=== PATIENT | female | born 1940 | race Caucasian/White ===

== ENCOUNTER 2022-11-23 07:56 | Outpatient (CLI) | payer MEDICARE, BC, SELFPAY | END 2022-11-23 07:57 | disposition home or self-care (01) | LOC: NFLDREF 12:20 | PROVIDERS: PCP Internal Medicine; Referring Provider Internal Medicine; Visit Provider Internal Medicine | DX: E78.5 Hyperlipidemia, unspecified (principal); E03.9 Hypothyroidism, unspecified; I25.10 Atherosclerotic heart disease of native coronary artery without angina pectoris; M85.80 Other specified disorders of bone density and structure, unspecified site; I89.0 Lymphedema, not elsewhere classified | CPT/HCPCS: 80048; 80061; 82306; 84443 ==

== ENCOUNTER 2022-11-25 08:54 | Outpatient (CLI) | payer MEDICARE, BC, SELFPAY ==
--- NOTE | 2022-11-25 09:15 | CRLHL7_ITS ---
For Patients: As a result of the Century Cures Act, medical imaging exams and procedure reports are released immediately into your electronic medical record. You may view this report before your referring provider. If you have questions, please contact your health care provider. BILATERAL SCREENING MAMMOGRAM WITH COMPUTER-AIDED DETECTION AND TOMOSYNTHESIS TECHNIQUE: CC and MLO views were obtained. These mammographic images have been obtained using full-field digital technique. These mammographic images were interpreted with the benefit of computer-aided detection. Breast Tomosynthesis was used in this interpretation. COMPARISON FILM: 11/23/21, 11/18/20, 11/12/19. FINDINGS: There are scattered areas of fibroglandular density IMPRESSION: There is no radiographic evidence for malignancy. ASSESSMENT: BI-RADS Category 1: Negative RECOMMENDATION: Routine screening mammogram in 1 year. A lay language report of this examination will be provided to the patient. Hakeem Richards M.D. Diagnostic/Nuclear Medicine Radiologist [email or web address] ENRIQUETA/Dictated by: Hakeem Richards MD @ 11/25/2022 10:10:00 AM (Electronically Signed)
== END 2022-11-25 08:55 | disposition home or self-care (01) ==
LOC: MAMMO 08:55
PROVIDERS: PCP Internal Medicine; Visit Provider Internal Medicine
DX: Z12.31 Encounter for screening mammogram for malignant neoplasm of breast (principal)
CPT/HCPCS: 77063; 77067

== ENCOUNTER 2023-01-27 11:21 | Outpatient (RCR) | payer SELFPAY | END 2024-01-27 16:20 | disposition home or self-care (01) | LOC: MOW 11:21 | PROVIDERS: PCP Internal Medicine; Visit Provider Internal Medicine | DX: Z76.0 Encounter for issue of repeat prescription (principal) | CPT/HCPCS: S5170 ==

== ENCOUNTER 2023-11-24 08:11 | Outpatient (CLI) | payer MEDICARE, BC, SELFPAY | END 2023-11-24 08:12 | disposition home or self-care (01) | LOC: NFLDREF 11-25 08:58 | PROVIDERS: PCP Internal Medicine; Referring Provider Internal Medicine; Visit Provider Internal Medicine | DX: I25.10 Atherosclerotic heart disease of native coronary artery without angina pectoris (principal); E03.9 Hypothyroidism, unspecified; E78.5 Hyperlipidemia, unspecified; M85.80 Other specified disorders of bone density and structure, unspecified site | CPT/HCPCS: 80048; 80061; 82306; 84443 ==

== ENCOUNTER 2023-11-27 20:38 | Emergency (ER) | payer MEDICARE, BC, SELFPAY ==
[2023-11-27] VITALS (11 sets, daily range): BP systolic 114–156; BP diastolic 65–93; PULSE 69–94; RESP 20; TEMP 36.7; O2SAT 95–98; BMI 21.1
--- NOTE | 2023-11-27 21:17 | ED.GENADULT ---
HPI - General Adult General Time Seen by Provider: 21:17 Date Seen: 11/27/23 Chief complaint: Dizziness/Vertigo Stated complaint: not feeling right, racing pulse. Time Seen by Provider: 11/27/23 21:17 Source: patient and RN notes reviewed Mode of arrival: ambulatory Limitations: no limitations History of Present Illness HPI narrative: This 83-year-old female is coming in accompanied by a family member with concern of not feeling right, concerned that something is off internally. She admits today she has maybe felt a little dizzy or woozy. She does states she has had a long-term history of fluid in her ears, hears noises in her ears all the time. She admits that she has maybe felt a little this dizziness before. 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 She recently had lab work and 1 of the values was off, it sounds like it may have been an anion gap. She started to do research on this and is wondering if she did something wrong, his room something internally with her kidneys due to her long-term magnesium use. She notes that she has had lifelong history of constipation, got it under control using magnesium. She did back off the magnesium and then was having constipation issues, she took 2 of her 's Dulcolax an had a cold sweat from them last night, felt terrible. She states she had a bad reaction to them. She is aware to not take these again. She does note she has glaucoma and it has been worsening, bright lights causes glare. She has not noted any double vision. She has not noticed any incoordination or or weakness. She does note that she has an appointment with her primary provider this coming Tuesday. Related Data Home Medications Medication Instructions Recorded Confirmed aspirin 81 mg capsule 81 mg PO QDAY 03/02/22 12/21/22 dorzolamide 22.3 mg-timolol 6.8 1 ophthalmic (eye) BID 03/02/22 12/21/22 mg/mL eye drops brimonidine 0.1 % eye drops 1 drp ophthalmic (eye) BID 03/09/22 12/21/22 latanoprost 0.005 % eye drops 1 drp ophthalmic (eye) QDAY 03/09/22 12/21/22 pxenmhaj-hoxt-uszu 8 mg-folic 400 1 tab PO .2 x weekly 08/05/22 12/21/22 mcg-K 50 mcg-lutein 300 mcg tablet (Centrum Silver Women) Black currant seed oil 1,000 mg PO DAILY 05/16/23 Previous Rx's Medication Instructions Recorded atorvastatin 10 mg tablet 10 mg PO .Bedtime #90 tabs 11/25/22 levothyroxine 75 mcg tablet 75 mcg PO DAILY #90 tabs 11/25/22 Allergies Allergy/AdvReac Type Severity Reaction Status Date / Time citalopram Allergy Mild cold Verified 11/27/23 20:50 flush anxious xanthan gum AdvReac Intermediate Abdominal Verified 11/27/23 20:50 Pain feta AdvReac Intermediate Uncoded 05/16/23 11:00 [facility] Medical History Diverticulosis of intestine (05/17/13) ?K57.90 - Diverticulosis of intestine, part unspecified, without perforation or abscess without bleeding (ICD-10) Surgical History History of removal of pigmented skin lesion ?Z98.890 - Other specified postprocedural states (ICD-10) ?Z87.2 - Personal history of diseases of the skin and subcutaneous tissue (ICD-10) Status post cataract extraction (01/24/13) ?Z98.49 - Cataract extraction status, unspecified eye (ICD-10) 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) Basal cell carcinoma of face (03/30/12) ?C44.310 - Basal cell carcinoma of skin of unspecified parts of face (ICD-10) Social History What is your current living situation?: I presently have a place to live Problems where you live: no known problems In the past 12 months, utilities in danger of being shut off: no In past 12 months, lack of transportation kept you from medical appts, meetings, work, or getting things needed for daily living: no In the past 12 mos, have been you worried that your food would run out before you had money to buy more?: never true In the past 12 mos, the food you bought just didn't last and you didn't have money to buy more?: never true Smoking Status: Former smoker How often do you have a drink containing alcohol: 2-4 times a month AUDIT-C Alcohol total score: 2 Non-prescribed substance use: denies use How often does anyone, including family, friends and others, physically hurt you: never How often does anyone, including family, friends and others, insult or talk down to you: never How often does anyone, including family, friends and others, threaten you with harm: never How often does anyone, including family, friends and others, scream or curse at you: never Little interest or pleasure in doing things: not at all Feeling down, depressed, or hopeless: not at all Exam Const: Vital Signs, click to edit/add: Vital Signs - 24 hr 11/27/23 20:50 11/27/23 21:07 11/27/23 21:15 Temperature 98.0 F Pulse Rate 83 82 Pulse Rate [Pulse Oximeter] 94 Respiratory Rate 20 Blood Pressure Blood Pressure [Ri ght Upper Arm] 156/93 H Pulse Oximetry 96 98 97 11/27/23 21:30 11/27/23 21:32 11/27/23 21:45 Temperature Pulse Rate 77 85 73 Pulse Rate [Pulse Oximeter] Respiratory Rate Blood Pressure 114/65 Blood Pressure [Ri ght Upper Arm] Pulse Oximetry 97 96 95 11/27/23 22:05 Temperature Pulse Rate 78 Pulse Rate [Pulse Oximeter] Respiratory Rate Blood Pressure Blood Pressure [Ri ght Upper Arm] Pulse Oximetry 97 This 83-year-old female is alert, interactive, no apparent distress. Pupils are equal round and reactive, sclerae clear, extraocular muscles intact. Symmetrical facial function. Oropharynx is normal, tongue without any lesions at our abnormality, posterior pharynx normal. She is able to speak in complete sentences, speech is normal. Neck is supple, no adenopathy or masses. Left ear canal seems somewhat small, she has a pearly arroyo looking TM, no evidence of infection. Right canal bit larger, underlying TM pearly arroyo without any evidence of erythema. Able to sit up without difficulty, lungs are clear, good air entry, no wheezing or crackles. CV regular rate rhythm, no significant murmur, normal S1-S2, no S3-S4. Abdomen is soft, nontender, nondistended, bowel sounds are present. Patient ambulatory into the ED of her own accord. Documenting provider has reviewed patient's vital signs: yes Course Reevaluation(s) Time of Reevaluation #1: 21:39 Reevaluation #1: Reviewed with patient her anion gap was low at 3. We went over anion gap bit more in depth. Reviewed with her that we utilize this is a test to help us decide problems with patient's health when it is elevated. Her level is not something I would worry about. She is interested in checking her magnesium, wants to go back on magnesium. Reviewed with her that her most recent blood work really showed good kidney function. She is relieved to hear that. We did discuss CT imaging, she would like to proceed with head CT. We specifically discussed dizziness, do not feel she is showing symptomatology of an acute stroke. We did discuss dizziness it is a difficult symptom to treat. It certainly could be related to her fluid in her ears but it is not guaranteed to be so. She would like to proceed with blood work and head CT. Did review with her that her EKG is looking normal. Time of Reevaluation #2: 22:45 Reevaluation #2: Reviewed that her labs are reassuring, magnesium is certainly normal. Head CT showing no acute intracranial pathology. Plan will be to discharge to home. She has follow-up with her primary on Tuesday as planned. Vital Signs Vital signs: Initial Vital Signs Temperature 98.0 F 11/27/23 20:50 Temperature Source Temporal Artery Scan 11/27/23 20:50 Pulse Rate 94 11/27/23 20:50 Respiratory Rate 20 11/27/23 20:50 Blood Pressure 156/93 H 11/27/23 20:50 Blood Pressure Mean 114 H 11/27/23 20:50 Blood Pressure Position Semi-Fowlers 11/27/23 20:50 Pulse Oximetry 96 11/27/23 20:50 Vital Signs Temperature 98.0 F 11/27/23 20:50 Pulse Rate 94 11/27/23 20:50 Respiratory Rate 20 11/27/23 20:50 Blood Pressure 156/93 H 11/27/23 20:50 Pulse Oximetry 96 11/27/23 20:50 Temperature 98.0 F 11/27/23 20:50 Pulse Rate 78 11/27/23 22:05 Respiratory Rate 20 11/27/23 20:50 Blood Pressure 114/65 11/27/23 21:32 Pulse Oximetry 97 11/27/23 22:05 Medical Decision Making Lab Data Lab results reviewed: Yes I reviewed the patient's lab results Labs: Lab Results 11/27/23 11/27/23 Range/Units 21:42 21:51 WBC 7.30 (4.50-11.00) K/uL RBC 3.83 L (4.00-5.20) m/uL Hgb 11.6 L (12.0-16.0) gm/dL Hct 34.9 (33.0-51.0) % MCV 91 (80-100) fL MCH 30 (26-34) pg MCHC 33 (32-36) gm/dL RDW Coeff of Raffy 12.7 (11.5-15.5) % Plt Count 181 (140-440) K/uL Neut % (Auto) 70.1 (42.0-72.0) % Lymph % (Auto) 18.5 L (20-44) % [place] % (Auto) 9.5 (0.0-11.0) % Eos % (Auto) 1.5 (0.0-7.0) % Baso % (Auto) 0.3 (0.0-3.0) % Neut # (Auto) 5.12 (1.7-7.0) K/uL Lymph # (Auto) 1.40 (0.90-2.90) K/uL [place] # (Auto) 0.70 (0.00-0.90) K/UL Eos # (Auto) 0.11 (0.00-0.50) K/uL Baso # (Auto) 0.02 (0.00-0.30) K/uL Abs Immat Gran (auto) 0.01 (0.00-0.30) K/uL Imm/Tot Granulo (auto) 0.1 % Sodium 134 L (135-149) mmol/L Potassium 3.8 (3.6-5.1) mmol/L Chloride 102 (96-114) mmol/L Carbon Dioxide 25 (20-32) mmol/L Anion Gap 7 (7-15) mEq/L BUN 18 (7-30) mg/dL Creatinine 0.6 (0.5-1.5) mg/dL Estimated Creat Clear 39.90 Estimated GFR 89 ml/min Glucose 129 H (60-115) mg/dL Calcium 9.0 (8.4-10.6) mg/dL Magnesium 2.0 (1.5-2.6) mg/dL POC Troponin I 0.00 L (0.01-0.04) ng/ml Imaging Data CT scan - head: Attestation: I have reviewed the pertinent imaging results. Radiologist's impression: Patient: FAYE PARSON Facility:?[facility] Patient ID:?[id number] Site Patient ID:?[id number]. Site :?08/10/1941 Study:?CT Head without contrast-11/27/2023 10:18:30 PM Ordering Physician:Heather Tena Final Report: INDICATION: Dizziness. TECHNIQUE: Head CT without contrast. COMPARISON: None. FINDINGS: Periventricular areas of low attenuation, likely due to chronic small vessel ischemic changes. Generalized volume loss. Atherosclerosis. No intracranial hemorrhage. No discrete mass or mass effect. There is no midline shift. The basilar cisterns are patent. No hydrocephalus. The arroyo-white matter interface is otherwise preserved. No acute osseous abnormality. No extracalvarial soft tissue abnormality. The mastoid air cells are clear. The paranasal sinuses are well-aerated. The visualized portions of the orbits and globes are unremarkable. IMPRESSION: No acute intracranial process per unenhanced head CT. Please note that all CT scans at this facility use dose modulation, iterative reconstruction, and/or weight-based dosing when appropriate to reduce radiation dose to as low as reasonably achievable. Dictated by Sam Cristina MD @ 11/27/2023 10:43:32 PM (Electronic Signature) ECG Data Attestation: I personally reviewed and interpreted this ECG as follows: (Normal sinus rhythm, 83 beats per minute. No ischemia, no infarction. QT corrected 451 milliseconds.) Prior ECG tracings: not available for review Discharge Plan Discharge Clinical Impression: Dizziness Patient Disposition: Home, Self-Care Condition: Stable Instructions: Dizziness (ED) Additional Instructions: Keep her appointment with Dr. Keita on [address]. Can talk to her about your symptoms, consider ENT referral, see if she has any other suggestions. I do think it is fine for you to use your magnesium for your chronic constipation. Activity Level: Activity as Tolerated Prescriptions: No Action dorzolamide-timolol 22.3-6.8 mg/mL drops 1 ophthalmic (eye) BID aspirin 81 mg capsule 81 mg PO QDAY latanoprost 0.005 % drops 1 drp ophthalmic (eye) QDAY brimonidine 0.1 % drops 1 drp ophthalmic (eye) BID Centrum Silver Women 8 mg iron-400 mcg-300 mcg tablet 1 tab PO .2 x weekly Black currant seed oil 1,000 mg PO DAILY atorvastatin 10 mg tablet 10 mg PO .Bedtime Qty: 90 3RF levothyroxine 75 mcg tablet 75 mcg PO DAILY Qty: 90 3RF Follow Up/Referrals: Alexsandra Keita MD [Primary Care Provider] - Stand Alone Forms: [employer] Info Instructions
--- NOTE | 2023-11-27 21:41 | CT_ITS ---
Patient: FAYE PARSON Facility:?[facility] Patient ID:?[id number] Site Patient ID:?[id number]. Site :?08/10/1941 Study:?CT-Head without contrast-11/27/2023 10:18:30 PM Ordering Physician:Heather Tena Final Report: INDICATION: Dizziness. TECHNIQUE: Head CT without contrast. COMPARISON: None. FINDINGS: Periventricular areas of low attenuation, likely due to chronic small vessel ischemic changes. Generalized volume loss. Atherosclerosis. No intracranial hemorrhage. No discrete mass or mass effect. There is no midline shift. The basilar cisterns are patent. No hydrocephalus. The arroyo-white matter interface is otherwise preserved. No acute osseous abnormality. No extracalvarial soft tissue abnormality. The mastoid air cells are clear. The paranasal sinuses are well-aerated. The visualized portions of the orbits and globes are unremarkable. IMPRESSION: No acute intracranial process per unenhanced head CT. Please note that all CT scans at this facility use dose modulation, iterative reconstruction, and/or weight-based dosing when appropriate to reduce radiation dose to as low as reasonably achievable. Dictated by Sam Cristina MD @ 11/27/2023 10:43:32 PM Signed by:?Sam Cristina MD @11/27/2023 10:43:32 PM (Electronic Signature)
[2023-11-27 21:58] LABS: Basophils Absolute Auto 0.02 K/uL (0.00-0.30); Basophils Percent Auto 0.3 % (0.0-3.0); Eosinophils Absolute Auto 0.11 K/uL (0.00-0.50); Eosinophils Percent Auto 1.5 % (0.0-7.0); Hematocrit 34.9 % (33.0-51.0); Hemoglobin* 11.6 gm/dL (12.0-16.0); Immature Granulocytes Abs Auto 0.01 K/uL (0.00-0.30); Immature Granulocytes Pct Auto 0.1 %; Lymphocytes Percent Auto 18.5 % (20-44); Mean Corpuscular HGB Conc 33 gm/dL (32-36); Mean Corpuscular Hemoglobin 30 pg (26-34); Mean Corpuscular Volume 91 fL (80-100); Monocytes Percent Auto 9.5 % (0.0-11.0); Neutrophils Absolute Auto 5.12 K/uL (1.7-7.0); Neutrophils Percent Auto 70.1 % (42.0-72.0); Platelet Count* 181 K/uL (140-440); RDW Coefficient of Variation % 12.7 % (11.5-15.5); Red Blood Count 3.83 m/uL (4.00-5.20)
[2023-11-27 22:00] LABS: Slide Review Reflex No
[2023-11-27 22:09] LABS: Chloride* 102 mmol/L (96-114)
[2023-11-27 22:10] LABS: Potassium* 3.8 mmol/L (3.6-5.1); Sodium* 134 mmol/L (135-149)
[2023-11-27 22:12] LABS: Creatinine* 0.6 mg/dL (0.5-1.5); Estimated Glomerular Filt Rate 89 ml/min
[2023-11-27 22:13] LABS: Anion Gap 7 mEq/L (7-15); Blood Urea Nitrogen* 18 mg/dL (7-30); Carbon Dioxide* 25 mmol/L (20-32); Glucose* 129 mg/dL (60-115)
== END 2023-11-27 22:59 | disposition home or self-care (01) ==
PROVIDERS: Emergency Provider Family Medicine; PCP Internal Medicine
DX: R42 Dizziness and giddiness (principal)
CPT/HCPCS: 36415; 70450; 80048; 83735; 84484; 85025; 99284

== ENCOUNTER 2023-11-29 08:06 | Outpatient (CLI) | payer MEDICARE, BC, SELFPAY ==
--- NOTE | 2023-11-29 08:15 | MM_ITS ---
Patient: FAYE PARSON Facility:?[facility] Patient ID:?[id number] Site Patient ID:?[id number]. Site :?1940 Study:?XRay-Breast Bilateral 3D screening mammogram w/cad-11/29/2023 8:41:45 AM Ordering Physician:ANTWON Final Report: BILATERAL SCREENING MAMMOGRAM WITH COMPUTER-AIDED DETECTION AND TOMOSYNTHESIS TECHNIQUE: CC and MLO views were obtained. These mammographic images have been obtained using full-field digital technique. These mammographic images were interpreted with the benefit of computer-aided detection. Breast Tomosynthesis was used in this interpretation. COMPARISON FILM: 11/25/22, 11/23/21, 11/18/20. FINDINGS: There are scattered areas of fibroglandular density. IMPRESSION: There is no radiographic evidence for malignancy. ASSESSMENT: BI-RADS Category 1: Negative RECOMMENDATION: Routine screening mammogram in 1 year. age 40. A lay language report of this examination will be provided to the patient. Sam Clarke M.D. Diagnostic Radiologist [email or web address] DSM/sp R& Transcribed: 4:21 p.m. SP/Dictated by: Sam Clarke MD @ 12/02/2023 12:19:00 PM Signed by:?Sam Clarke MD @12/02/2023 4:27:55 PM (Electronic Signature)
== END 2023-11-29 08:07 | disposition home or self-care (01) ==
LOC: MAMMO 08:07
PROVIDERS: PCP Internal Medicine; Visit Provider Internal Medicine
DX: Z12.31 Encounter for screening mammogram for malignant neoplasm of breast (principal)
CPT/HCPCS: 77063; 77067

== ENCOUNTER 2024-01-28 14:40 | Outpatient (RCR) | payer SELFPAY | END 2025-01-27 10:26 | disposition home or self-care (01) | LOC: MOW 14:40 | PROVIDERS: PCP Internal Medicine; Visit Provider Internal Medicine | DX: Z76.0 Encounter for issue of repeat prescription (principal) | CPT/HCPCS: S5170 ==

== ENCOUNTER 2024-12-18 10:21 | Outpatient (CLI) | payer MEDICARE, BC, SELFPAY ==
--- NOTE | 2024-12-18 10:45 | CRLHL7_ITS ---
For Patients: As a result of the Century Cures Act, medical imaging exams and procedure reports are released immediately into your electronic medical record. You may view this report before your referring provider. If you have questions, please contact your health care provider. INDICATION: BILATERAL SCREENING MAMMOGRAM, ASYMPTOMATIC 84F COMPARISON: 11/29/23, 11/25/22, 11/23/21 TECHNIQUE: CC and MLO views were obtained. These mammographic images have been obtained using full-field digital technique. These mammographic images were interpreted with the benefit of computer aided detection and tomosynthesis. BREAST COMPOSITION: There are scattered areas of fibroglandular density. FINDINGS: No suspicious findings. ASSESSMENT: BI-RADS 1 Negative RECOMMENDATION: Annual screening mammogram. A lay language report of this examination will be provided to the patient. Dictated by: Sam Clarke MD @ 12/18/2024 10:57:54 (Electronically Signed)
== END 2024-12-18 10:22 | disposition home or self-care (01) ==
PROVIDERS: PCP Internal Medicine; Visit Provider Internal Medicine
DX: Z12.31 Encounter for screening mammogram for malignant neoplasm of breast (principal)
CPT/HCPCS: 77063; 77067

== ENCOUNTER 2025-02-14 10:30 | Outpatient (RCR) | payer MEDICARE, BC, SELFPAY | END 2025-06-14 23:59 | disposition home or self-care (01) | PROVIDERS: PCP Internal Medicine; Visit Provider Internal Medicine | DX: I89.0 Lymphedema, not elsewhere classified (principal); R60.9 Edema, unspecified; Z74.1 Need for assistance with personal care; Z51.89 Encounter for other specified aftercare | CPT/HCPCS: 80048; 80061; 82306; 84443; 97140; 97165; 97530; 97535 ==